=== PATIENT | female | born 1950 | race Caucasian/White ===

== ENCOUNTER 2023-12-23 18:10 | Emergency (ER) | payer MEDICARE, OTHER ==
[2023-12-23 18:54] VITALS: BP 137/83; PULSE 72; RESP 18; TEMP 98.4; BMI 22.3
== END 2023-12-23 19:40 | disposition home or self-care (01) ==
LOC: FER 18:10
DX: S80.01XA Contusion of right knee, initial encounter (principal); S80.02XA Contusion of left knee, initial encounter; M25.571 Pain in right ankle and joints of right foot; W10.8XXA Fall (on) (from) other stairs and steps, initial encounter
CPT/HCPCS: 73562-TC-LT-FY; 73562-TC-RT-FY; 73610-TC-RT-FY; 99284-25